=== PATIENT | female | born 1995 | race Two or more races ===

== ENCOUNTER 2024-09-21 18:34 | Emergency (ER) | payer OTHER, SELFPAY ==
[2024-09-21 18:43] VITALS: BP 103/62; PULSE 77; TEMP 37.1; O2SAT 100; BMI 28.3
--- NOTE | 2024-09-21 19:25 | ED.UPPEXIN1 ---
HPI HPI - Extremity Injury (Upper) General Chief Complaint: Extremity Injury, Upper Stated Complaint: SHOCKED AT WORK Time Seen by Provider: 09/21/24 19:17 Source: patient Limitations: no limitations History of Present Illness HPI narrative: The patient is coming to the ER after she had a injury with a electric wire at work, he mentioned that it was not the high-voltage it was only a small buzz , but she has been feeling some numbness in her left arm since then no chest pain or difficulty breathing no other concerns and no localized burn or skin changes Patient still have full function of the left arm with no difficulty moving or any weakness Related Data Home Medications ?Medication ?Instructions ?Recorded ?Confirmed No Known Home Medications 09/21/24 09/21/24 Allergies Allergy/AdvReac Type Severity Reaction Status Date / Time No Known Drug Allergies Allergy Verified 09/21/24 18:51 Opioid HPI Opioid Management Most Recent Pain and Opioid Data: No Data to Display Review of Systems ROS Status of ROS 10 or more systems reviewed and unremarkable except as noted in history and below PFSH PFSH Social History Little interest or pleasure in doing things: not at all Feeling down, depressed, or hopeless: not at all Exam Narrative Exam Narrative: Nurses notes and vital signs reviewed and patient is not hypoxic. General: Well-appearing and in no apparent distress. Skin: Warm, dry, no pallor noted. No rash. Head: Normocephalic, atraumatic. Neck: Supple, non-tender. Eye: Pupils are equal, round and EOMI. No scleral icterus. Cardiovascular: Regular Rate and Rhythm without murmur, gallop or rub. Respiratory: No accessory muscle use or respiratory distress. Lungs are clear to auscultation, no wheezing, rales or rhonchi Chest Wall: no tenderness Back: No midline thoracic or lumbar vertebral tenderness. No CVA tenderness Musculoskeletal: normal ROM, no calf or popliteal tenderness, no lower extremity edema/swelling, GI: Abdomen is soft, non-distended. Normal bowel sounds. No masses appreciated. No tenderness to palpation. No rebound, guarding, or rigidity noted. Neurological: A&O x4. No cranial nerve dysfunction observed. No truncal ataxia. Moves all extremities. Sensation intact. Psychiatric: Cooperative and interactive. Normal mood and affect. Constitutional Vital Signs, click to edit/add: Last Vital Signs Temp 98.8 F 09/21/24 18:43 Pulse 77 09/21/24 18:43 Resp 14 09/21/24 18:43 BP 103/62 09/21/24 18:43 Pulse Ox 100 09/21/24 18:43 O2 Del Method Room Air 09/21/24 18:43 Course Vital Signs Vital signs: Vital Signs Temperature 98.8 F 09/21/24 18:43 Pulse Rate 77 09/21/24 18:43 Respiratory Rate 14 09/21/24 18:43 Blood Pressure 103/62 09/21/24 18:43 Pulse Oximetry 100 09/21/24 18:43 Oxygen Delivery Method Room Air 09/21/24 18:43 Temperature 98.8 F 09/21/24 18:43 Pulse Rate 77 09/21/24 18:43 Respiratory Rate 14 09/21/24 18:43 Blood Pressure 103/62 09/21/24 18:43 Pulse Oximetry 100 09/21/24 18:43 Oxygen Delivery Method Room Air 09/21/24 18:43 MDM - Extremity Injury (Upper) MDM Narrative Medical decision making narrative: The patient mentioned that she have numbness starting from her elbow on examination I could not find any acute pathology or any skin changes Although the patient endorsed numbness in the forearm area The patient right now instructed about hydration and monitoring the symptoms She is to rest for today Follow-up with occupational health and she is to come back to the ER in case of any new symptoms or any localized skin changes The patient is to follow up with primary care physician in next 2-3 days or to return to the emergency department should any of the signs or symptoms worsen or new symptoms develop. The patient agrees with the following Diagnosis and Treatment plan and the patient will be discharged home. Discharge Plan Discharge Chief Complaint: Extremity Injury, Upper Clinical Impression: Electric shock Patient Disposition: Home, Self-Care Time of Disposition Decision: 19:26 Condition: Good Prescriptions / Home Meds: No Action No Known Home Medications Print Language: Citizen Of [place] Instructions: Electrical Allen in Adults (ED) Referrals: Physician,Non-Staff, [Primary Care Provider] - 1 week Discharge Date/Time: 09/21/24 19:42
== END 2024-09-21 19:42 | disposition home or self-care (01) ==
PROVIDERS: Emergency Provider Emergency Medicine
DX: T75.4XXA Electrocution, initial encounter (principal); W86.8XXA Exposure to other electric current, initial encounter; R20.0 Anesthesia of skin
CPT/HCPCS: 99281